=== PATIENT | male | born 1995 | race Caucasian/White ===

== ENCOUNTER 2021-07-05 21:47 | Emergency (ER) | payer SELFPAY ==
[~2021-07-05 21:47] MED LIST: BENADRYL 50MG C50 MG PO; MEDDOSEPAK PO; PEPCID20 MG PO; [UNRECOGNIZED DRUG - REMARK]
== END 2021-07-05 23:50 | disposition left against medical advice (07) | DRG 951 ==
LOC: ED 21:47 → LWOBS 23:50
DX: Z53.21 Procedure and treatment not carried out due to patient leaving prior to being seen by health care provider (principal)